=== PATIENT | female | born 1995 | race African-American/Black ===

== ENCOUNTER 2016-12-22 08:21 | Emergency (ER) | payer OTHER ==
[~2016-12-22] VITALS: Ht 165.1 cm; Wt 133.8 kg
[2016-12-22] MEDS ORDERED: MOBIC15 MG PO (09:22)
[2016-12-22 09:29] VITALS: BP 138/106
== END 2016-12-22 09:43 | disposition home or self-care (01) ==
LOC: ER 08:21
DX: S80.12XA Contusion of left lower leg, initial encounter (principal); S50.812A Abrasion of left forearm, initial encounter; V49.9XXA Car occupant (driver) (passenger) injured in unspecified traffic accident, initial encounter; Y93.89 Activity, other specified; Y92.89 Other specified places as the place of occurrence of the external cause; Y99.8 Other external cause status